=== PATIENT | female | born 1960 | race Asian ===

== ENCOUNTER 2024-02-20 10:26 | Outpatient (CLI) | payer OTHER | END 2024-02-20 10:27 | disposition home or self-care (01) | LOC: BICRAD 10:26 | PROVIDERS: ATTEND Family Medicine | DX: R76.12 Nonspecific reaction to cell mediated immunity measurement of gamma interferon antigen response without active tuberculosis (principal); I51.7 Cardiomegaly | CPT/HCPCS: 71046 ==